=== PATIENT | female | born 1995 | race Caucasian/White ===

== ENCOUNTER → 2021-07-28 | Outpatient (CLI) | payer OTHER ==
[~2021-07-28] MED LIST: PRENATAL VITAM1 EAC3 PO; TRANDATE 100 M100 MG PO; TYLENOL325 MG PO; VENTOLIN HFA 66.7 GM INH
[2021-07-28 11:21] LABS: HEMOGLOBIN 14.8 gm/dl (12.3-15.3); RED BLOOD COUNT 4.96 M/UL (4.00-5.10); WHITE BLOOD COUNT 6.5 K/UL (4.5-11.0)
[2021-07-28 11:45] LABS: BUN/CREATININE RATIO 13 (0-10)
[2021-07-29 09:15] LABS: RHEUMATOID ARTHRITIS FACTOR <10.0 IU/mL (0.0-13.9)
[2021-07-29 14:10] LABS: TREPONEMA PALLIDUM ANTIBODIES Non Reactive (Non Reactive)
[2021-07-31 16:11] LABS: ANGIOTENSIN-CONVERTING ENZYME 56 U/L (14-82); T PALLIDUM AB (FTA-AB) Non Reactive (Non Reactive)
== END ==
LOC: LAB 10:04
DX: H30.91 Unspecified chorioretinal inflammation, right eye (principal)
CPT/HCPCS: 36415; 80048; 82164; 83036; 85025; 85549; 85652; 86038; 86140; 86431; 86780

== ENCOUNTER 2022-01-04 06:25 | Emergency (ER) | payer OTHER ==
[2022-01-04 07:19] LABS: HEMOGLOBIN 15.2 gm/dl (12.3-15.3); RED BLOOD COUNT 5.2 M/UL (4.00-5.10)
[2022-01-04 07:37] LABS: BUN/CREATININE RATIO 19 (0-10)
== END 2022-01-04 09:04 | disposition home or self-care (01) ==
LOC: ER1 06:25
PROVIDERS: Physician Assistant
DX: O21.9 Vomiting of pregnancy, unspecified (principal); O99.512 Diseases of the respiratory system complicating pregnancy, second trimester; O99.891 Other specified diseases and conditions complicating pregnancy; R19.7 Diarrhea, unspecified; Z20.822 Contact with and (suspected) exposure to COVID-19; J45.909 Unspecified asthma, uncomplicated; Z88.2 Allergy status to sulfonamides; Z88.0 Allergy status to penicillin; Z79.899 Other long term (current) drug therapy; Z3A.17 17 weeks gestation of pregnancy
CPT/HCPCS: 80053; 81001; 85025; 96374; 99284; J2550; J7030; U0002

== ENCOUNTER → 2022-02-06 | Outpatient (CLI) | payer OTHER | LOC: GENOP 19:25 | DX: O99.891 Other specified diseases and conditions complicating pregnancy (principal); O16.2 Unspecified maternal hypertension, second trimester; M54.50 Low back pain, unspecified; R07.89 Other chest pain; R10.9 Unspecified abdominal pain; Z3A.24 24 weeks gestation of pregnancy; Z88.0 Allergy status to penicillin; Z88.2 Allergy status to sulfonamides; Z91.018 Allergy to other foods | CPT/HCPCS: G0463 ==

== ENCOUNTER 2022-03-27 09:02 | Outpatient (CLI) | payer OTHER | END 2022-03-27 11:02 | disposition home or self-care (01) | LOC: GENOP 09:02 | DX: O26.853 Spotting complicating pregnancy, third trimester (principal); O47.03 False labor before 37 completed weeks of gestation, third trimester; O16.3 Unspecified maternal hypertension, third trimester; Z3A.30 30 weeks gestation of pregnancy | CPT/HCPCS: 81001; 82962; 96372 ==

== ENCOUNTER 2022-04-24 12:16 | Outpatient (CLI) | payer OTHER ==
[2022-04-24 13:00] LABS: HEMOGLOBIN 13.7 gm/dl (12.3-15.3); RED BLOOD COUNT 4.89 M/UL (4.00-5.10); WHITE BLOOD COUNT 8.7 K/UL (4.5-11.0)
[2022-04-24 13:20] LABS: BUN/CREATININE RATIO 11 (0-10)
== END 2022-04-24 20:22 | disposition home or self-care (01) ==
LOC: GENOP 12:16
PROVIDERS: Obstetrics & Gynecology
DX: O24.410 Gestational diabetes mellitus in pregnancy, diet controlled (principal); O16.3 Unspecified maternal hypertension, third trimester; Z88.0 Allergy status to penicillin; Z88.2 Allergy status to sulfonamides; Z91.010 Allergy to peanuts; Z3A.34 34 weeks gestation of pregnancy
CPT/HCPCS: 80053; 81001; 82570; 82962; 83615; 84156; 84550; 85025; G0463; J0702

== ENCOUNTER 2022-05-04 11:09 | Outpatient (CLI) | payer OTHER ==
[2022-05-04 12:43] LABS: HEMOGLOBIN 12.8 gm/dl (12.3-15.3); RED BLOOD COUNT 4.62 M/UL (4.00-5.10); WHITE BLOOD COUNT 10.1 K/UL (4.5-11.0)
[2022-05-04 13:12] LABS: BUN/CREATININE RATIO 21 (0-10)
== END 2022-05-04 16:17 | disposition home or self-care (01) ==
LOC: GENOP 11:09
PROVIDERS: Obstetrics & Gynecology
DX: O13.3 Gestational [pregnancy-induced] hypertension without significant proteinuria, third trimester (principal); O24.410 Gestational diabetes mellitus in pregnancy, diet controlled; O99.513 Diseases of the respiratory system complicating pregnancy, third trimester; J45.909 Unspecified asthma, uncomplicated; Z88.2 Allergy status to sulfonamides; Z88.1 Allergy status to other antibiotic agents; Z88.0 Allergy status to penicillin; Z3A.36 36 weeks gestation of pregnancy
CPT/HCPCS: 80053; 81001; 82570; 83518; 83615; 84156; 84550; 85025; G0463

== ENCOUNTER 2022-05-08 13:45 | Outpatient (CLI) | payer OTHER | END 2022-05-08 19:06 | disposition home or self-care (01) | LOC: GENOP 13:45 | DX: O47.03 False labor before 37 completed weeks of gestation, third trimester (principal); O99.891 Other specified diseases and conditions complicating pregnancy; N89.8 Other specified noninflammatory disorders of vagina; Z3A.36 36 weeks gestation of pregnancy | CPT/HCPCS: 81001; 82962; 83518; 96360; J7120 ==

== ENCOUNTER 2022-05-10 05:59 | Outpatient (CLI) | payer OTHER | END 2022-05-10 07:38 | disposition home or self-care (01) | LOC: GENOP 05:59 | DX: O47.1 False labor at or after 37 completed weeks of gestation (principal); O99.891 Other specified diseases and conditions complicating pregnancy; N89.8 Other specified noninflammatory disorders of vagina; O99.283 Endocrine, nutritional and metabolic diseases complicating pregnancy, third trimester; E28.2 Polycystic ovarian syndrome; O99.513 Diseases of the respiratory system complicating pregnancy, third trimester; J45.909 Unspecified asthma, uncomplicated; Z3A.37 37 weeks gestation of pregnancy | CPT/HCPCS: 81001; 83518; G0463 ==

== ENCOUNTER 2022-05-14 02:12 | Inpatient (IN) | payer OTHER ==
[~2022-05-14] VITALS: Ht 165.1 cm; Wt 128.8 kg
[2022-05-14 03:39] LABS: HEMOGLOBIN 12.7 gm/dl (12.3-15.3); RED BLOOD COUNT 4.56 M/UL (4.00-5.10); WHITE BLOOD COUNT 8.6 K/UL (4.5-11.0)
[2022-05-14] MEDS ORDERED: PRENATABS FA T1 EACH PO (04:20)
[2022-05-14] MEDS ORDERED: LABETALOL HCL300 MG PO ×2 (04:20→17:51)
[2022-05-14] MEDS ORDERED: IBUPROFEN600 MG PO (11:45)
[2022-05-14] MEDS ORDERED: FERROUS SULFAT325 MG PO (11:45)
[2022-05-14] MEDS ORDERED: COLACE100 MG PO (11:45)
[2022-05-14] MEDS ORDERED: LABETALOL 31 MG/1 ML PO (16:48)
[2022-05-15 04:25] LABS: HEMOGLOBIN 12.2 gm/dl (12.3-15.3)
[2022-05-15] MEDS ORDERED: TRANDATE 200 M200 MG PO (13:57)
[2022-05-17 23:13] LABS: HEMOGLOBIN 12.1 gm/dl (12.3-15.3); RED BLOOD COUNT 4.4 M/UL (4.00-5.10); WHITE BLOOD COUNT 9.7 K/UL (4.5-11.0)
[2022-05-17 23:35] LABS: BUN/CREATININE RATIO 16 (0-10)
[2022-05-18] MEDS ORDERED: PROCARDIA XL30 MG PO (09:43)
== END 2022-05-18 17:43 | disposition home or self-care (01) | DRG 807 ==
LOC: GENOP 02:12 → OB 07:42
PROVIDERS: Obstetrics & Gynecology; ADMIT Obstetrics & Gynecology
PROC: 10E0XZZ Delivery of Products of Conception, External Approach (ICD-10-PCS; principal; 2022-05-14)
PROC: 10907ZC Drainage of Amniotic Fluid, Therapeutic from Products of Conception, Via Natural or Artificial Opening (ICD-10-PCS; 2022-05-14)
PROC: 4A1HXCZ Monitoring of Products of Conception, Cardiac Rate, External Approach (ICD-10-PCS; 2022-05-14)
DX: O66.0 Obstructed labor due to shoulder dystocia (principal); Z37.0 Single live birth; O14.14 Severe pre-eclampsia complicating childbirth; Z3A.37 37 weeks gestation of pregnancy; Z20.822 Contact with and (suspected) exposure to COVID-19; O99.214 Obesity complicating childbirth; E66.9 Obesity, unspecified; O99.824 Streptococcus B carrier state complicating childbirth; O24.420 Gestational diabetes mellitus in childbirth, diet controlled; Z28.310 Unvaccinated for COVID-19; Z90.49 Acquired absence of other specified parts of digestive tract; Z88.1 Allergy status to other antibiotic agents; Z88.0 Allergy status to penicillin; Z88.2 Allergy status to sulfonamides; Z82.49 Family history of ischemic heart disease and other diseases of the circulatory system; Z83.3 Family history of diabetes mellitus; Z83.49 Family history of other endocrine, nutritional and metabolic diseases
CPT/HCPCS: 36415; 36600; 80053; 81001; 82570; 82800; 82962; 83518; 83735; 83880; 84156; 85014; 85018; 85025; 94640; 94760; J0360; J0610; J0690; J1650; J2590; J3475